=== PATIENT | female | born 1950 | race Caucasian/White ===

== ENCOUNTER → 2017-10-22 | Outpatient (CLI) | payer MEDICARE, OTHER ==
[~2017-10-22] MED LIST: ROBA500T PO
--- NOTE | 2017-10-24 10:14 | RSPPFT ---
DATE OF PROCEDURE: 10/22/17 COMMENTS: Spirometry shows FVC of 2.8 at 99% of predicted, FEV1 of 1.8 at 83%, FEV1/FVC ratio is decreased. Flow is decreased at FEF 25, FEF 50, FEF 75 and FEF 25-75. There is no significant response after bronchodilator treatment. Lung volumes show residual volume is normal. TLC is normal. Diffusion capacity is normal. Flow volume loop indicates terminal airways obstruction. IMPRESSION: 1. Mild small airways obstructive lung disease. 2. No response after bronchodilator treatment. 3. Normal lung volumes. 4. Normal diffusion.
== END ==
LOC: HRSP 10:16
PROVIDERS: ATTEND Specialist
DX: J98.8 Other specified respiratory disorders (principal)
CPT/HCPCS: 36600; 82805; 94060; 94726; 94729

== ENCOUNTER → 2017-12-18 | Outpatient (CLI) | payer MEDICARE, OTHER ==
[~2017-12-18] VITALS: Ht 160 cm; Wt 150.7 kg
[~2017-12-18] MED LIST changes: +ARMO60TA PO; +BILB40CA2 PO; +CHLORHEXIDINE GLUCONATE 2 % 1 PACK (2 CLOTHS) TOPICAL PRN; +IBUP-1129; +LACTATED RINGER'S 1000 ML IV PRN; +LIDOCAINE HCL 1% PF 5 ML SYRINGE OTHER ONE; +METOPROLOL TARTRATE 25 MG TAB PO PRN; +POVIDONE IODINE 5% (ANTISEPSIS KIT) 4 APPLICATIONS EACH NARE PRN; +PROPOFOL 200 MG/20 ML AMP IV ONE; +SODIUM CHLORID 0.9% 500 ML IV PRN; +VITATAB56 PO
--- NOTE | 2017-12-18 10:52 | GIPROC ---
[facility] [address] [facility]. [facility], [address] COLONOSCOPY PROCEDURE REPORT EXAM DATE: 12/18/2017 PATIENT NAME: Medina Calix MR #: [id number] BIRTHDATE: 1950 ENDOSCOPIST: Majo Yates MD ORDER #: [id number] RUBBER GOODS CUTTER FINISHER: Annabelle Rizvi Hogan, Darren, and Susan Joy STATUS: outpatient INDICATIONS: The patient is a 67 yr old female here for a colonoscopy due to high risk patient with personal history of colonic polyps PROCEDURE PERFORMED: colonoscopy with ablation MEDICATIONS: None and Per Anesthesia. PREP QUALITY: good PREP TYPE:Other: ESTIMATED BLOOD LOSS: None CONSENT: The patient understands the risks and benefits of the procedure and understands that these risks include, but are not limited to: sedation, allergic reaction, infection, perforation and/or bleeding. Alternative means of evaluation and treatment include, among others: physical exam, x-rays, and/or surgical intervention. The patient elects to proceed with this endoscopic procedure. medical equipment was checked for proper function. Hand hygiene and appropriate measures for infection prevention was taken. After the risks, benefits and alternatives of the procedure were thoroughly explained, Informed consent was verified, confirmed and timeout was successfully executed by the treatment team. A digital exam revealed external hemorrhoids The Pentax EC-[id number] endoscope was introduced through the anus and advanced to the cecum, which was identified by both the appendix and ileocecal valve. The instrument was then slowly withdrawn as the colon was fully examined. COLON FINDINGS: Diverticulosis sigmoid,descending polyp diminutive descending colon-cold biopsy with complete removal five diminutive polyps in rectum-three removed with cold biopsy, rest were ablated using balltip. Retroflexed views revealed internal hemorrhoids and Retroflexed views revealed small internal hemorrhoids The scope was then completely withdrawn from the patient and the procedure terminated. PROCEDURE WITHDRAWAL TIME:7minutes ADVERSE EVENTS: There were no complications. IMPRESSIONS: 1. Diverticulosis sigmoid,descending polyp diminutive descending colon-cold biopsy with complete removal five diminutive polyps in rectum-three removed with cold biopsy, rest were ablated using balltip 2. Retroflexed views revealed internal hemorrhoids 3. Retroflexed views revealed small internal hemorrhoids 4. Revealed external hemorrhoids RECOMMENDATIONS: 1. Await biopsy results. Biopsy results will not be ready for 7-10 days. If you don't hear from us in two weeks, call our office for results. 2. Benefiber 2 tsp daily 3. High fiber diet 4. Probiotics from any [facility] or [employer] food store 5. Yearly rectal exams RECALL: Return 5 years Colonoscopy Majo Yates MD eSigned: Majo Yates MD 12/18/2017 10:51 AM cc: Chuck Clarke M.D and christiano meza M.D. PATIENT NAME: Medina Calix MR#: [id number]
--- NOTE | 2017-12-18 11:00 | GIPROC ---
[facility] [address] [facility]. [facility], [address] EGD PROCEDURE REPORT EXAM DATE: 12/18/2017 PATIENT NAME: Medina Calix MR #: [id number] BIRTHDATE: 1950 ATTENDING: Majo Yates MD ORDER #: [id number] EXTRUDER: Annabelle Rizvi Hogan, Darren, and Susna Joy STATUS: outpatient INDICATIONS: The patient is a 67 yr old female here for an EGD due to reflux clearence for bariatric surgery-gastric bypass PROCEDURE PERFORMED: EGD w/ biopsy MEDICATIONS: None and Per Anesthesia. TOPICAL ANESTHETIC: none CONSENT: The patient understands the risks and benefits of the procedure and understands that these risks include, but are not limited to: sedation, allergic reaction, infection, perforation and/or bleeding. Alternative means of evaluation and treatment include, among others: physical exam, x-rays, and/or surgical intervention. The patient elects to proceed with this endoscopic procedure. medical equipment was checked for proper function. Hand hygiene and appropriate measures for infection prevention was taken. After the risks, benefits and alternatives of the procedure were thoroughly explained, Informed consent was verified, confirmed and timeout was successfully executed by the treatment team. The patient was anesthetized with topical anesthesia and the EC-[id number] (Pedi C) endoscope was introduced through the mouth and advanced to the second portion of the duodenum. Retroflexed views revealed a hiatal hernia The gastroscope was then slowly withdrawn and removed. Few small superficial gtreabvmnmp-wybrhf-xkhqfx gastritis gastric body-biopsy submucosal nodule fundus-1 ch-jach-opgrbr irregular z line-biopsy. ADVERSE EVENTS: There were no complications. IMPRESSIONS: 1. Few small superficial lbqqdhndmcy-rmdrqa-mvjoio gastritis gastric body-biopsy submucosal nodule fundus-1 pg-mytr-gxjihe irregular z line-biopsy 2. Retroflexed views revealed a hiatal hernia RECOMMENDATIONS: 1. Await biopsy results. Biopsy results will not be ready for 7-10 days. If you don't hear from us in two weeks, call our office for biopsy results. 2. Anti-reflux regimen 3. Pantoprazole 40 mg po daily- 1 month we will discuss with if further evalution of submucosal nodule required before surgery, will be in gastric pouch post op PATIENT CONDITION: stable DISPOSITION: Home REPEAT EXAM: Return 3 months EGD possible EUS if required by bariatric surgery before surgery Majo Yates MD eSigned: Majo Yates MD 12/18/2017 11:00 AM cc: Chuck Valdivia M.D. PATIENT NAME: Medina Calix MR#: [id number]
[2017-12-18 11:30] VITALS: BP 129/60; PULSE 78; RESP 16; TEMP 97.5; O2SAT 98
--- NOTE | 2017-12-18 14:49 | EKG ---
Date Performed: 12/18/2017 Time Performed: 09:15:40 PTAGE: 67 years EKG: Sinus rhythm WITH SINUS ARRHYTHMIA NORMAL ECG PREVIOUS TRACING : 01/26/2014 16.10 No significant change from previous tracing noted. DOCTOR: Zeus Matthew Interpretating Date/Time 12/18/2017 14:47:42
== END ==
LOC: HSDC 07:49
PROVIDERS: ATTEND Internal Medicine Gastroenterology
DX: Z12.11 Encounter for screening for malignant neoplasm of colon (principal); Z86.010 Personal history of colon polyps; K64.4 Residual hemorrhoidal skin tags; K57.30 Diverticulosis of large intestine without perforation or abscess without bleeding; D12.4 Benign neoplasm of descending colon; K62.1 Rectal polyp; K64.8 Other hemorrhoids; K21.9 Gastro-esophageal reflux disease without esophagitis; K44.9 Diaphragmatic hernia without obstruction or gangrene; K29.70 Gastritis, unspecified, without bleeding; K25.9 Gastric ulcer, unspecified as acute or chronic, without hemorrhage or perforation; K31.89 Other diseases of stomach and duodenum; K22.9 Disease of esophagus, unspecified; I49.8 Other specified cardiac arrhythmias
CPT/HCPCS: 00813; 43239; 45380; 45388; 88305; 88312; 93005; J7120

== ENCOUNTER → 2018-02-28 | Outpatient (CLI) | payer MEDICARE, OTHER ==
[~2018-02-28] VITALS: Ht 162.6 cm; Wt 150.3 kg
[~2018-02-28] MED LIST changes: +CHOL5000 PO; +DEXTROSE 5%-LACTATED RING INJ 1,000 ML IV SCH; -IBUP-1129; -LIDOCAINE HCL 1% PF 5 ML SYRINGE OTHER ONE; +PANT40TA3 PO; -ROBA500T PO; -VITATAB56 PO
--- NOTE | 2018-02-28 11:53 | PD.PROCEDR ---
GI Procedure PROCEDURE PERFORMED EGD with biopsy followed by an endoscopic ultrasound INDICATION FOR PROCEDURE Gastric nodule PROCEDURE: The procedure, risks and benefits were discussed with Patient/POA and informed consent was obtained. Anesthesia sedated Patient with Diprivan. Patient was placed in the left lateral decubitus position. EGD: The Pentax videoscope was introduced through the oropharynx and advanced to the second portion of the duodenum under direct visualization. Retroflexion was performed in the stomach. FINDINGS: The esophagus this was normal Stomach there was mid gastric body submucosal mass more towards the posterior wall and lesser curve otherwise gastric mucosa was unremarkable The duodenum was unremarkable and within normal limits EUS: The Pentax videoscope was introduced through the oropharynx and advanced to the stomach. FINDINGS: The submucosal mass was noted to be at the level of the fourth layer hypoechoic measuring 4 x 6 mm probable leiomyoma versus GIST No lymphadenopathy noted The pancreatic body and tail were intact ESTIMATED BLOOD LOSS: None SPECIMENS REMOVED: Gastric biopsy COMPLICATIONS: None IMPRESSION: Submucosal mass mid gastric body measuring 4 x 6 mm more towards the posterior wall and lesser curve PLAN: Recommend surgical resection while having her gastric bypass if possible Await biopsy Follow-up in 1 year for possible EGD and or EUS Jony Sutherland MD February 28, 2018 11:53
[2018-02-28 12:20] VITALS: BP 152/74; PULSE 65; RESP 20; TEMP 98; O2SAT 98
== END ==
LOC: HSDC 08:18
PROVIDERS: ATTEND Internal Medicine Gastroenterology
DX: K31.89 Other diseases of stomach and duodenum (principal)
CPT/HCPCS: 43242; 88305; 88312

== ENCOUNTER 2018-05-22 05:08 | Inpatient (IN) ==
[2018-05-22] MEDS ORDERED: CEFAZOLIN IV.SIG PRN ×2 (05:30)
[2018-05-22] MEDS ORDERED: [UNRECOGNIZED DRUG - OTHER] IV.SIG PRN ×2 (05:30)
[2018-05-22] MEDS ORDERED: Metoprolol Tartrate 25 MG Tablet PO SCH (05:45)
[2018-05-22] MEDS ORDERED: Chlorhexidine Gluconate 2% 1 Pack (2 Cloths) TOPICAL SCH (05:45)
[2018-05-22] MEDS ORDERED: Sodium Chlor 0.9% Inj 500 ML IV.SIG SCH (06:00)
[2018-05-22] MEDS ORDERED: Bupivacaine/Epinephrine 0.5% Inj 50 ML Vial ONE (07:14)
--- NOTE | 2018-05-22 09:57 | GIPROC ---
[facility] [address] [facility]. [facility], [address] EGD PROCEDURE REPORT EXAM DATE: 05/22/2018 PATIENT NAME: Medina Calix MR #: [id number] BIRTHDATE: 1950 ATTENDING: Gaurav Pinon MD ORDER #: [id number] PREVENTION OFFICER: none STATUS: inpatient INDICATIONS: The patient is a 67 yr old female here for an EGD due to diagnostic procedure, submucosal mass, intraoperative consultation for endoscopic mass identification. Patient currently intubated undergoing gastric bypass PROCEDURE PERFORMED: EGD, diagnostic MEDICATIONS: Per Anesthesia and None. TOPICAL ANESTHETIC: none CONSENT: The patient understands the risks and benefits of the procedure and understands that these risks include, but are not limited to: sedation, allergic reaction, infection, perforation and/or bleeding. Alternative means of evaluation and treatment include, among others: physical exam, x-rays, and/or surgical intervention. The patient elects to proceed with this endoscopic procedure. medical equipment was checked for proper function. Hand hygiene and appropriate measures for infection prevention was taken. After the risks, benefits and alternatives of the procedure were thoroughly explained, Informed consent was verified, confirmed and timeout was successfully executed by the treatment team. The patient was anesthetized with anesthesia and the GroupVoxax EG-[id number] endoscope was introduced through the mouth and advanced to the stomach body. Findings of a smooth mass noted close to GE junction on lesser curve. Retroflexed views revealed submucosal mass, lesser curve The gastroscope was then slowly withdrawn and removed. STOMACH: A smooth mass measuring 4 X 6mm in size was found on the lesser curvature of the stomach. ADVERSE EVENTS: There were no complications. IMPRESSIONS: 1. Mass measuring 4 X 6mm in size was found on the lesser curvature of the stomach 2. Retroflexed views revealed submucosal mass, lesser curve RECOMMENDATIONS: Await laparoscopic excision of specimen PATIENT CONDITION: fair DISPOSITION: Inpatient REPEAT EXAM: NONE Gaurav Pinon MD eSigned: Gaurav Pinon MD 05/22/2018 9:57 AM cc:
[2018-05-22] MEDS ORDERED: diphenhydrAMINE HCl 12.5 MG/5 ML Elixir UDC PO PRN (10:44)
[2018-05-22] MEDS ORDERED: Acetaminophen-HYDROcodone 325/7.5 Liq 15 ML UDC PO PRN (10:44)
[2018-05-22] MEDS ORDERED: Post-op Orders (for Pharmacy) OTHER STA (10:44)
[2018-05-22] MEDS ORDERED: Naloxone Inj 0.4 MG/ML Vial IV.PUSH PRN (10:47)
[2018-05-22] MEDS ORDERED: Morphine Inj 30 MG/30 ML PCA.VIAL PCA PRN (10:47)
[2018-05-22] MEDS ORDERED: fentaNYL Citrate Inj 100 MCG/2 ML Ampul ONE (11:03)
[2018-05-22] MEDS ORDERED: KCL 20 mEq/D5W/NaCl 0.45% Inj 1,000 ML ONE (11:07)
[2018-05-22] MEDS ORDERED: Morphine Inj 30 MG/30 ML PCA.VIAL PCA ONE (11:07)
[2018-05-22] MEDS: KCL 20 mEq/D5W/NaCl 0.45% Inj 1,000 ML IV.CONT SCH ×2 (11:15→18:01)
[2018-05-22] MEDS ORDERED: *Ondansetron Inj 4 MG/2 ML Vial PERIprocedural Use ONLY ONE (11:22)
[2018-05-22] MEDS ORDERED: Lidocaine PF 1% Inj 5 ML Syringe INFILTRATN ONE (14:03)
[2018-05-22] MEDS ORDERED: Neostigmine Inj 5 MG/5 ML Syringe IV.PUSH ONE (14:03)
[2018-05-22] MEDS ORDERED: Glycopyrrolate Inj 1 MG/5 ML Syringe IV.PUSH ONE (14:03)
[2018-05-22] MEDS ORDERED: Phenylephrine/NS 1000 MCG/10ML Syringe IV.PUSH ONE (14:03)
[2018-05-22] MEDS: Enoxaparin Inj 40 MG/0.4 ML Syringe SQ SCH (15:59)
--- NOTE | 2018-05-22 20:37 | MP ---
cc: Duarte Valdivia MD DATE OF OPERATION: 05/22/2018 DATE OF OPERATION: 05/22/2018 PREOPERATIVE DIAGNOSIS: 1. Super obesity with a body mass index of 56, complicated. 2. Gastric nodule lesser curve. POSTOPERATIVE DIAGNOSIS: 1. Super obesity with a body mass index of 56, complicated. 2. Gastric nodule lesser curve. PROCEDURE PERFORMED: 1. Laparoscopic Sunita-en-Y gastric bypass, 100 cm Sunita limb, antegastric, antecolic. 2. Wedge resection of the stomach. 3. Intraoperative endoscopy performed by Dr. Pinon and will be dictated by Dr. Gaurav Pinon. SURGEON: Duarte Valdivia MD TELEPHONY ENGINEER: MD Dr. Zi Sandra's assistance was necessary for the procedure due to the complexity of the procedure. Dr. Pinon assisted with manipulation and exposure during the procedure. Dr. Pinon was present for the entire procedure. Logistics Planner provided by [employer] was utilized for managing the camera. ANESTHESIA: General endotracheal anesthesia. ESTIMATED BLOOD LOSS: 20 mL. FINDINGS: Fatty liver nodule at the lesser curve of the stomach. SPECIMEN: Wedge of stomach. COMPLICATIONS: None. DESCRIPTION OF PROCEDURE: The patient was brought to the operating room, placed on the operating table in supine position. Bilateral sequential inflation device placed on lower extremities general anesthesia instituted and antibiotics initiated. The abdomen was prepped and draped sterilely. A point 80 cm distal to the xiphoid in the midline was anesthetized with 0.25% Marcaine with epinephrine. Skin incision was made, 5 mm Optiview port placed under direct vision and pneumoperitoneum created. Under direct vision, a 5 mm left upper quadrant, 12 mm left upper quadrant, 12 mm right upper quadrant and 5 mm right upper quadrant port was placed. Prior to placement of all ports, the skin and peritoneum were anesthetized with 0.25% Marcaine with epinephrine. The findings are as above. The peritoneum was lifted into the upper abdomen. The gastrocolic ligament was divided to create a path for the Sunita limb. The ligament of Treitz was identified at a point 40 cm distal identified. The small bowel was divided in this region using the Lanark Flex stapler, vascular wall reinforced with SeamGuard. The distal segment was then brought out for a distance of 100 cm. Enterotomy created in this region, enterotomy in the biliopancreatic limb, and a crdt-ar-mnay stapled jejunojejunostomy created in the usual manner. The mesenteric defect closed with 2-0 Surgidac suture in a running manner. The patient was then placed in reverse Trendelenburg position, left side up. the flex retractor placed in the left lobe of liver and retracted. The stomach was inspected anteriorly. No evidence of a gastric nodule identified. In the mid body of the stomach, the vasculature along the greater curvature. The stomach was then inspected posteriorly from this window, no evidence of the nodule identified. At this point, it was decided to perform an intraoperative endoscopy. This was performed by Dr. Gaurav Pinon who broke scrub for this. Once this was performed, the nodule was identified and a point proximal to this along the lesser curve identified the lesser sac, entered in this region and the stomach was then stapled horizontally using Lanark Flex stapler blue load. An additional firing was taken directed towards the angle of His to completely divide the stomach. at the point where gastric nodule was located the vasculature along the lesser curve was , the posterior attachments . A Harmonic scalpel was then used to separate the sub gastrics along this portion of the stomach superiorly. The stomach was then divided using the Lanark Flex stapler with gold load, reinforced with SeamGuard, 2 firings were taken. This portion of the stomach was then removed from the peritoneal cavity through the 12 mm port site in the right upper quadrant. The nodule could be palpated in the specimen. At this point, the gastric bypass was focused on once more. A gastrotomy created in the new stomach, enterotomy in the Sunita limb, gastrojejunostomy created stomal opening of 2 cm. An 18-Luxembourgish OG tube was placed across the anastomosis. The defect was then closed in 2 layers of running 2-0 Vicryl. Prior to placement of the second layer, methylene blue instilled through the OG tube. There was no evidence of extravasation. Evicel was then placed over the gastrojejunostomy jejunojejunostomy and all staple lines. The operative field was inspected. Hemostasis was present. The keith flex retractor was removed. The fascia at the 12 mm port site in the right upper quadrant was approximated with 0 Vicryl using a fascial closure device. CO2 was then released. All ports were removed. All skin incisions were closed with 4-0 Monocryl. The abdominal wall was cleaned and sterile dressing placed. The patient was awakened and taken to the recovery room. MD TIMOTHY Lutehr/tootie/dionicio , 06:44 PM , 07:00 PM SIA
[2018-05-23] MEDS: KCL 20 mEq/D5W/NaCl 0.45% Inj 1,000 ML IV.CONT SCH ×4 (06:23→18:05)
[2018-05-23 10:42] LABS: Calcium 9.3 mg/dL (8.5-10.1); Carbon Dioxide 22.4 meq/L (21.0-32.0); Magnesium 2.3 mg/dL (1.5-2.5); Potassium 4.7 meq/L (3.5-5.1)
[2018-05-23] MEDS: Thyroid 60 MG Tablet PO SCH (11:05)
[2018-05-23 14:57] LABS: Baso % (Auto) 0.3 % (0.0-2.0); Eos # (Auto) 0.1 th/mm3 (0.0-0.4); Eos % (Auto) 0.6 % (0.0-4.0); Hematocrit 40.8 % (35.0-46.0); Hemoglobin 13.9 gm/dL (11.6-15.3); Lymph % (Auto) 12.9 % (9.0-44.0); Mean Corpuscular Hemoglobin 30.7 pg (27.0-34.0); Mean Corpuscular Volume 90.2 fL (80.0-100.0); Mean Platelet Volume 7.2 fL (7.0-11.0); Mono # (Auto) 0.9 th/mm3 (0.0-0.9); Mono % (Auto) 5.9 % (0.0-8.0); Neut # (Auto) 12.6 th/mm3 (1.8-7.7); Neut % (Auto) 80.3 % (16.0-70.0); Platelet Count 249 th/mm3 (150-450); Red Blood Count 4.52 mil/mm3 (4.00-5.30); Red Cell Distribution Width 13.6 % (11.6-17.2); White Blood Count 15.6 th/mm3 (4.0-11.0)
--- NOTE | 2018-05-23 16:30 | P.PNGS ---
Subjective Interval history: Doing well overall Tolerating PO fluids No GI complaints Physical Exam Vital signs: Vital Signs 05/22/18 20:00 05/23/18 04:00 05/23/18 08:00 Temperature 98 F 97.2 F L 97.5 F L Pulse Rate 59 L 61 66 Respiratory Rate 18 18 17 Blood Pressure 130/61 141/62 H 137/63 Pulse Oximetry 91 L 93 L 94 L 05/23/18 14:40 05/23/18 16:00 Temperature 97.1 F L Pulse Rate 71 Respiratory Rate 18 Blood Pressure 122/60 Pulse Oximetry 95 94 L Intake & Output 05/22/18 05/23/18 05/23/18 18:59 06:59 18:59 Intake Total 2019 1000 / 1000 1200 / 1200 Output Total 2 / 2 Balance 1999 998 / 998 1200 / 1200 Weight 150.8 kg Intake: IV 1400 / 1400 1000 / 1000 1200 / 1200 D5W/1/2NS + KCL 20 mEq Inj 1, 1000 / 1000 800 / 800 1000 / 1000 000 ML @ 125 mls/hr IV.CONT . Q8H MOHINDER Rx#:[id number] Ofirmev Inj 1,000 mg In 100 ml 100 / 100 @ 400 mls/hr IV.SIG LINE ASSEMBLY UTILITY WORKER PRN Rx#:[id number] Ancef Inj 1,000 MG In NS Inj 100 / 100 100 / 100 100 / 100 100 ML @ 200 mls/hr IV.SIG Q8H MOHINDER Rx#:[id number] Flagyl 500 MG Inj 100 ML @ 200 200 / 200 100 / 100 100 / 100 mls/hr IV.SIG Q8H MOHINDER Rx#: [id number] Oral 120 / 120 Anesthesia Amount 500 / 500 Output: Urine 2 / 2 Estimated Blood Loss 20 / 20 Other: # Voids 1 Narrative: GENERAL: NAD CARDIOVASCULAR: Regular rate and rhythm without murmurs, gallops, or rubs. RESPIRATORY: Clear to auscultation. Breath sounds equal bilaterally. No wheezes , rales, or rhonchi. GASTROINTESTINAL: Abdomen soft, normal post operative tenderness, surgical incisions C/D/I MUSCULOSKELETAL: Extremities without clubbing, cyanosis, or edema. NEURO: Alert & Oriented x4 to person, place, time, situation. Moves all ext x4 - Additional findings Additional findings: Laboratory Results - last 12 hr 05/23/18 05/23/18 09:10 14:39 WBC 15.6 H RBC 4.52 Hgb 13.9 Hct 40.8 MCV 90.2 MCH 30.7 MCHC 34.0 RDW 13.6 Plt Count 249 MPV 7.2 Neut % (Auto) 80.3 H Lymph % (Auto) 12.9 [place] % (Auto) 5.9 Eos % (Auto) 0.6 Baso % (Auto) 0.3 Neut # (Auto) 12.6 H Lymph # (Auto) 2.0 [place] # (Auto) 0.9 Eos # (Auto) 0.1 Baso # (Auto) 0.0 WBC Differential . Differential Comment Auto diff final Sodium 143 Potassium 4.7 Chloride 111 H Carbon Dioxide 22.4 Anion Gap 10 BUN 13 Creatinine 0.66 Estimated GFR 89 Random Glucose 98 Calcium 9.3 Magnesium 2.3 Assessment and Plan - Plan 67yo F POD#1 laparoscopic RNY -D/C PATTERNMAKER WOOD, transition to oral pain control -Continue with PO fluids 60mlQ 30min -Continue with frequent ambulation Code Status: Full Discussed Condition With: Patient and family at bedside Discharge Planning: D/C home tomorrow - Attending Attestation The exam, history, and the medical decision-making described in the above note were completed with the assistance of the mid-level provider. I reviewed and agree with the findings presented. I attest that I had a uvjp-ou-ibse encounter with the patient on the same day, and personally performed and documented my assessment and findings in the medical record.
[2018-05-23] MEDS: Enoxaparin Inj 40 MG/0.4 ML Syringe SQ SCH (18:00)
[2018-05-24] MEDS: KCL 20 mEq/D5W/NaCl 0.45% Inj 1,000 ML IV.CONT SCH ×2 (05:29→12:34)
[2018-05-24] MEDS: Thyroid 60 MG Tablet PO SCH (08:31)
--- NOTE | 2018-05-24 11:36 | P.PNGS ---
Subjective Interval history: Doing well, pain and nausea well controlled No GI complaints Physical Exam Vital signs: Vital Signs 05/23/18 14:40 05/23/18 16:00 05/23/18 20:00 Temperature 97.1 F L 98.1 F Pulse Rate 71 86 Respiratory Rate 18 20 Blood Pressure 122/60 158/68 H Pulse Oximetry 95 94 L 95 05/24/18 00:00 05/24/18 08:00 Temperature 97.2 F L 97.8 F Pulse Rate 82 96 H Respiratory Rate 18 16 Blood Pressure 143/76 H 157/74 H Pulse Oximetry 94 L 93 L Intake & Output 05/23/18 05/24/18 05/24/18 18:59 06:59 18:59 Intake Total 1999 1030 / 1030 Output Total 1650 / 1650 Balance 1999 -620 / -620 Weight 148.4 kg Intake: IV 1999 1000 / 1000 D5W/1/2NS + KCL 20 mEq Inj 1, 1800 / 1800 1000 / 1000 000 ML @ 125 mls/hr IV.CONT . Q8H MOHINDER Rx#:[id number] Ancef Inj 1,000 MG In NS Inj 100 / 100 100 ML @ 200 mls/hr IV.SIG Q8H MOHINDER Rx#:[id number] Flagyl 500 MG Inj 100 ML @ 200 100 / 100 mls/hr IV.SIG Q8H MOHINDER Rx#: [id number] Oral 30 / 30 Output: Urine 1650 / 1650 Other: # Voids 1 Narrative: GENERAL: NAD CARDIOVASCULAR: Regular rate and rhythm without murmurs, gallops, or rubs. RESPIRATORY: Clear to auscultation. Breath sounds equal bilaterally. No wheezes , rales, or rhonchi. GASTROINTESTINAL: Abdomen soft, normal post operative tenderness, surgical incisions C/D/I MUSCULOSKELETAL: Extremities without clubbing, cyanosis, or edema. NEURO: Alert & Oriented x4 to person, place, time, situation. Moves all ext x4 Assessment and Plan - Plan 67yo F POD#1 laparoscopic RNY -Continue to increase fluids as tolerated -Continue with frequent ambulation Code Status: Full Discussed Condition With: patient Discharge Planning: D/C home today - Attending Attestation The exam, history, and the medical decision-making described in the above note were completed with the assistance of the mid-level provider. I reviewed and agree with the findings presented. I attest that I had a bicp-vq-ciem encounter with the patient on the same day, and personally performed and documented my assessment and findings in the medical record.
== END 2018-05-24 14:04 | disposition home or self-care (01) ==
LOC: HSDI 05:08 → N07 13:56
PROVIDERS: ADMIT Surgery; ATTEND Surgery